=== PATIENT | female | born 1985 | race American Indian/Alaskan Native ===

== ENCOUNTER 2021-09-21 21:42 | Emergency (ER) | payer MEDICAID | END 2021-09-21 22:50 | disposition left against medical advice (07) | LOC: DL.ED 21:42 | DX: Z53.21 Procedure and treatment not carried out due to patient leaving prior to being seen by health care provider (principal) ==

== ENCOUNTER 2023-09-25 21:08 | Emergency (ER) | payer MEDICAID ==
[2023-09-25 21:40] VITALS: PULSE 94
[2023-09-25 22:20] LABS: APPEARANCE,URINE CLEAR (CLEAR); BILIRUBIN,URINE NEGATIVE (NEGATIVE); COLOR,URINE YELLOW (YELLOW); GLUCOSE,URINE NEGATIVE (NEGATIVE); KETONES,URINE NEGATIVE (NEGATIVE); LEUKOCYTE ESTERASE,URINE SMALL (NEGATIVE); NITRITE,URINE NEGATIVE (NEGATIVE); OCCULT BLOOD,URINE LARGE (NEGATIVE); PH,URINE 5.5 (5.0-9.0); PROTEIN,URINE 30 (NEGATIVE); UROBILINOGEN,URINE 0.2 mg/dL (0.2-1.0)
[2023-09-25 22:23] LABS: AMPHETAMINES,URINE POSITIVE (NEGATIVE); BARBITURATES,URINE NEGATIVE (NEGATIVE); BENZODIAZEPINE,URINE NEGATIVE (NEGATIVE); MDMA (ECSTASY), URINE NEGATIVE (NEGATIVE); METHADONE,URINE NEGATIVE (NEGATIVE); METHAMPHETAMINES,URINE POSITIVE (NEGATIVE); OPIATES,URINE NEGATIVE (NEGATIVE); OXYCODONE,URINE NEGATIVE (NEGATIVE); PHENCYCLIDINE,URINE NEGATIVE (NEGATIVE); TCA,URINE NEGATIVE (NEGATIVE)
[2023-09-25 22:27] LABS: BASOPHILS PERCENT AUTO 0.1 % (0.0-1.0); EOSINOPHILS PERCENT AUTO 2.2 % (1.0-3.0); LYMPHOCYTES PERCENT AUTO 18.6 % (20.5-50.1); MEAN CORPUSCULAR HEMOGLOBIN 30.2 pg (27.0-34.0); MEAN CORPUSCULAR HGB CONC 31.7 g/dL (33.0-35.0); MEAN CORPUSCULAR VOLUME 95.1 fL (80-100); MONOCYTES PERCENT AUTO 5.8 % (2-8); NEUTROPHILS PERCENT AUTO 73.3 % (42.2-75.2); PLATELET COUNT,PLT 305 10^3/uL (150-450); RED BLOOD CELL COUNT 4.31 10^6/uL (4.2-5.4); WHITE BLOOD CELL COUNT,WBC 13.7 10^3/uL (5.0-10.0)
[2023-09-25 22:35] LABS: BACTERIA,URINE FEW /HPF (0-FEW/HPF); EPITHELIAL CELLS,URINE FEW /HPF (NOT SEEN); WBC,URINE 0-5 /HPF (0-5/HPF)
[2023-09-25 22:51] LABS: A/G RATIO 0.7; ALANINE AMINOTRANSFERASE,ALT 47 U/L (14-59); ALBUMIN 3.5 g/dL (3.4-5.0); ALKALINE PHOSPHATASE 149 U/L (46-116); ANION GAP 14.8 mEq/L (7-13); ASPARTATE AMNIOTRANSFERASE,AST 51 U/L (15-37); BILIRUBIN TOTAL 0.2 mg/dL (0.2-1.0); BLOOD UREA NITROGEN,BUN 10 mg/dL (7-18); BUN/CREATININE RATIO 13.9 (No establ ref range); CALCIUM 8.5 mg/dL (8.5-10.1); CARBON DIOXIDE,CO2 25 mmol/L (21-32); CHLORIDE,CL 108 mmol/L (98-107); CREATININE 0.72 mg/dL (0.55-1.02); GLUCOSE RANDOM 106 mg/dL (70-99); POTASSIUM,K 3.8 mmol/L (3.5-5.1); PROTEIN TOTAL,TP 8.8 g/dL (6.4-8.2); SODIUM,NA 144 mmol/L (136-145)
[2023-09-25 22:53] LABS: ESTIMATED GFR 111 mL/min (>=60)
== END 2023-09-25 22:21 | disposition home or self-care (01) ==
LOC: DL.ED 21:08
DX: T59.811A Toxic effect of smoke, accidental (unintentional), initial encounter (principal); F10.920 Alcohol use, unspecified with intoxication, uncomplicated; Z88.0 Allergy status to penicillin; Z88.1 Allergy status to other antibiotic agents; Z87.891 Personal history of nicotine dependence
CPT/HCPCS: 36415; 80053; 80305-QW; 80307; 81001; 81025; 85025; 87086; 99283; 99285

== ENCOUNTER 2025-01-04 10:20 | Emergency (ER) | payer MEDICAID ==
[2025-01-04] MEDS ORDERED: Ketamine 500 mg/10 ML MDV IV ONE ×2 (10:43→11:25)
[2025-01-04] MEDS ORDERED: Rocuronium 100 MG/10 ML MDV IV ONE (10:45)
[2025-01-04] MEDS ORDERED: Lactated Ringers 2,000 ML IV ONE (10:51)
[2025-01-04] MEDS ORDERED: Diphtheria,Pertussis(Acell),Tetanus Vaccine 0.5 ML Syringe IM ONE (11:21)
[2025-01-04 11:25] LABS: HCG QUALITATIVE,SERUM NEGATIVE (NEGATIVE)
[2025-01-04 11:26] LABS: A/G RATIO 0.64; ALANINE AMINOTRANSFERASE,ALT 63 U/L (14-59); ASPARTATE AMNIOTRANSFERASE,AST 204 U/L (15-37); BILIRUBIN TOTAL 0.2 mg/dL (0.2-1.0); BLOOD UREA NITROGEN,BUN 17 mg/dL (7-18); CARBON DIOXIDE,CO2 18 mmol/L (21-32); CHLORIDE,CL 115 mmol/L (98-107); CREATININE 1.65 mg/dL (0.55-1.02); ESTIMATED GFR 41 mL/min (>=60); ETHANOL BLOOD MEDICAL 64 mg/dL (0); GLUCOSE RANDOM 159 mg/dL (70-99); PROTEIN TOTAL,TP 5.4 g/dL (6.4-8.2); SODIUM,NA 151 mmol/L (136-145)
[2025-01-04 11:27] LABS: POTASSIUM,K 1.8 mmol/L (3.5-5.1)
[2025-01-04 11:32] LABS: BASOPHILS PERCENT AUTO 0.1 % (0.0-1.0); EOSINOPHILS PERCENT AUTO 0.1 % (1.0-3.0); LYMPHOCYTES PERCENT AUTO 8.7 % (20.5-50.1); MONOCYTES PERCENT AUTO 5.5 % (2-8); NEUTROPHILS PERCENT AUTO 85.6 % (42.2-75.2); PLATELET COUNT,PLT 136 10^3/uL (150-450); RED BLOOD CELL COUNT 3.00 10^6/uL (4.2-5.4); WHITE BLOOD CELL COUNT,WBC 19.2 10^3/uL (5.0-10.0)
[2025-01-04 11:54] LABS: O2 DELIVERY DEVICE VENTILATOR
[2025-01-04 11:55] LABS: BASE EXCESS ARTERIAL -14 mmol/L ((-2)-(+3)); BICARBONATE,ARTERIAL 16 mmol/L (21-28); O2 SATURATION ARTERIAL 99 % (94-98); PCO2 ARTERIAL 51 mmHg (35-48); PH,ARTERIAL 7.09 pH (7.35-7.45); PO2 ARTERIAL 207 mmHg (83-108)
== END 2025-01-04 12:15 ==
LOC: DL.ED 10:20
DX: S82.832B Other fracture of upper and lower end of left fibula, initial encounter for open fracture type I or II (principal); S82.102B Unspecified fracture of upper end of left tibia, initial encounter for open fracture type I or II; S91.311A Laceration without foreign body, right foot, initial encounter; S81.811A Laceration without foreign body, right lower leg, initial encounter; I95.9 Hypotension, unspecified; Z88.0 Allergy status to penicillin; Z88.1 Allergy status to other antibiotic agents; Z79.899 Other long term (current) drug therapy; X58.XXXA Exposure to other specified factors, initial encounter; Z23 Encounter for immunization
CPT/HCPCS: 29505; 31500; 36415; 36430; 36600; 51702; 71045; 72170; 73590; 80053; 80307; 82803; 83735; 84703; 85025; 86850; 86900; 86901; 86920; 86922; 90471; 96361; 96365; 96375; 99285; 99291; G0390; P9016; 90715; J0690; J3475; J3490; J7050; J7120